=== PATIENT | female | born 1945 | race Caucasian/White ===

== ENCOUNTER 2016-05-21 15:50 | Emergency (ER) | payer MEDICARE, OTHER ==
[~2016-05-21] VITALS: Ht 162.6 cm; Wt 99.8 kg
[2016-05-21 16:05] VITALS: BP 170/79
--- NOTE | 2016-05-21 16:57 | PHYS DOC ---
Past Medical History Past Medical History: Diabetes-Type II, Hypertension Past Surgical History: Tubal ligation Additional Past Surgical Histo: left and right hip replacement Alcohol Use: None Drug Use: None Adult General Chief Complaint Chief Complaint: COUGH HPI HPI Patient is a 70 year old female presents the emergency room with progressive and worsening cough and congestion that began 3 days ago. Patient denies any history of cardiopulmonary disease. Patient denies foreign travel, antibiotic use or hospitalization within the past 90 days. The been no known ill contacts. Patient reports that she has worsening cough at night which often appears her ability to sleep well. Patient's daughter, who is an RN reports that her oxygen saturation on the home program today was 89%. Review of Systems Review of Systems Constitutional: Denies fever or chills [] Eyes: Denies change in visual acuity, redness, or eye pain [] HENT: Denies nasal congestion or sore throat [] Respiratory: Denies cough or shortness of breath [] Cardiovascular: No additional information not addressed in HPI [] GI: Denies abdominal pain, nausea, vomiting, bloody stools or diarrhea [] : Denies dysuria or hematuria [] Musculoskeletal: Denies back pain or joint pain [] Integument: Denies rash or skin lesions [] Neurologic: Denies headache, focal weakness or sensory changes [] Endocrine: Denies polyuria or polydipsia [] Current Medications Current Medications Current Medications Medications (Trade) Dose Ordered Sig/Jignesh Start Time Stop Time Status Last Admin Dose Admin Albuterol/ Ipratropium (Duoneb) 3 ml 1X ONCE 05/21/16 17:00 05/21/16 17:01 DC 05/21/16 16:58 3 ML Allergies Allergies Allergies Coded Allergies Type Severity Reaction Last Updated Verified No Known Drug Allergies 05/21/16 No Physical Exam Physical Exam Constitutional: Well developed, well nourished, no acute distress, non-toxic appearance. Patient's temperature 99.5. HENT: Normocephalic, atraumatic, bilateral external ears normal, oropharynx moist, no oral exudates. Boggy nasal mucosa with clear rhinorrhea. Eyes: PERRLA, EOMI, conjunctiva normal, no discharge. [] Neck: Normal range of motion, no tenderness, supple, no stridor. [Bilateral anterior and posterior cervical lymphadenopathy. Cardiovascular:Heart rate regular rhythm, no murmur Lungs & Thorax: There is no respiratory distress or respiratory fatigue. There is no sensory muscle use. Patient has coarse central wheezing the resonates bilaterally into the peripheral torres. The peripheral lung torres themselves are clear to auscultation. Oxygen saturation is 100% on room air. Abdomen: Bowel sounds normal, soft, no tenderness, no masses, no pulsatile masses. [] Skin: Warm, dry, no erythema, no rash. [] Back: No tenderness, no CVA tenderness. [] Extremities: No tenderness, no cyanosis, no clubbing, ROM intact, no edema. [] Neurologic: Alert and oriented X 3, normal motor function, normal sensory function, no focal deficits noted. [] Psychologic: Affect normal, judgement normal, mood normal. [] Current Patient Data Vital Signs Vital Signs Date Time Temp Pulse Resp B/P Pulse Ox O2 Delivery O2 Flow Rate FiO2 05/21/16 17:03 Room Air 05/21/16 16:05 99.4 107 16 100 99.4 EKG EKG [] Radiology/Procedures Radiology/Procedures PA and lateral chest x-ray shows no evidence of focal consolidation or infiltrate. There is some hazy shadowing into the right lower lobe. This does not exclude a cardiac border. Course & Med Decision Making Course & Med Decision Making Pertinent Labs and Imaging studies reviewed. (See chart for details) [] Dragon Disclaimer Dragon Disclaimer This electronic medical record was generated, in whole or in part, using a voice recognition dictation system. Departure Departure Impression: Primary Impression: Bronchitis Disposition: 01 HOME, SELF-CARE Condition: GOOD Referrals: NO PCP (PCP) Patient Instructions: Acute Bronchitis, [id number] Additional Instructions: 1. Take the medication as prescribed. 2. Please review the discharge instructions, particular the reasons to return to the emergency room. 3. Call your primary care doctor tomorrow morning to schedule follow-up appointment for reevaluation within the week. Scripts Hydrocodone/Chlorphen Polis (Tussionex Pennkinetic Susp)480 Ml Kylah.[id number] Ml PO QHS #60 ML Prov:TANYA ROSEN 05/21/16 Albuterol Sulfate (Proair Hfa Inhaler)8.5 Gm Hfa.aer.ad2 Puff INH PRN Q6HRS PRN SHORTNESS OF BREATH #1 INHALER Ref 0 Prov:TANYA ROSEN 05/21/16 Azithromycin (Azithromycin Tablet)250 Mg Tablet1 Pkg PO UD #6 TAB Prov:TANYA ROSEN 05/21/16 Prednisone 50 Mg [id number] Mg PO DAILY 5 Days Prov:TANYA ROSEN 05/21/16 TANYA ROSEN May 21, 2016 16:57
[2016-05-21] MEDS ORDERED: IPRATRPIUM/ALBUTEROL 0.5/2.5MG 3 ML NEBU. NEB ONE (17:00)
[2016-05-21] MEDS ORDERED: AZIT250T6 PO (17:36)
[2016-05-21] MEDS ORDERED: PRED50TA PO (17:36)
[2016-05-21] MEDS ORDERED: HYDR115S2 PO (17:36)
[2016-05-21] MEDS ORDERED: PROAIR HFA8.5 GM INH (17:36)
--- NOTE | 2016-05-22 08:41 | RAD ---
Indication productive cough for one week. Worsening. Chest pain. PA and lateral views of the chest were obtained. No prior imaging is available. The heart, pulmonary vessels and mediastinum appear normal. The lungs are clear. There is no pleural fluid or pneumothorax. The visualized bony structures appear grossly intact. IMPRESSION:: No acute or focal process seen in the chest
== END 2016-05-21 17:42 | disposition home or self-care (01) ==
LOC: ER 15:50
DX: J40 Bronchitis, not specified as acute or chronic (principal); E11.9 Type 2 diabetes mellitus without complications; I10 Essential (primary) hypertension
CPT/HCPCS: 71020; 94250; 94640; 99284; J7620